=== PATIENT | male | born 1980 | race Asian ===

== ENCOUNTER 2017-09-02 20:56 | Emergency (ER) | payer MEDICAID ==
[~2017-09-02] VITALS: Ht 190.5 cm; Wt 191.0 kg
[~2017-09-02 20:56] MED LIST: NOCURR
[2017-09-02 22:04] LABS: BASOPHILS # (AUTO) 0.06 K/uL (0.00-0.20); BASOPHILS % (AUTO) 0.6 % (0.0-2.0); EOSINOPHILS # (AUTO) 0.29 K/uL (0.00-0.70); EOSINOPHILS % (AUTO) 2.85 % (1.0-6.0); HEMATOCRIT 42.7 % (41-53); HEMOGLOBIN 13.8 g/dL (13.5-17.5); LYMPHOCYTES # (AUTO) 1.8 K/uL (1.0-4.8); LYMPHOCYTES % (AUTO) 17.8 % (22.0-44.0); MEAN CORPUSCULAR HEMOGLOBIN 26.4 pg (26.0-34.0); MEAN CORPUSCULAR HGB CONC 32.3 G/dL (31.0-37.0); MEAN CORPUSCULAR VOLUME 82 fL (80-100); MONOCYTES # (AUTO) 1.2 K/uL (0.1-1.0); MONOCYTES % (AUTO) 11.7 % (2.0-9.0); NEUTROPHILS # (AUTO) 6.8 K/uL (1.8-7.7); NEUTROPHILS % (AUTO) 67.1 % (40.0-70.0); PLATELET COUNT (AUTO) 388 K/uL (150-450); RED BLOOD CELL COUNT(AUTO) 5.23 MIL/uL (4.50-5.90); RED CELL DISTRIBUTION WIDTH 14.8 % (11.5-14.5); WHITE BLOOD COUNT (AUTO) 10.1 K/uL (4.5-11.0)
[2017-09-02 22:25] LABS: ANION GAP 7 mmol/L (8-16); CALCIUM, TOTAL 9.4 mg/dL (8.8-10.5); CARBON DIOXIDE 29 mmol/L (22-29); CHLORIDE 102 mmol/L (98-107); CREATININE 1.23 mg/dL (0.60-1.30); GLOMERULAR FILTR. RATE CALC > 60 mL/min (>60); POTASSIUM 3.9 mmol/L (3.5-5.1); SODIUM SERUM 138 mmol/L (136-145); UREA NITROGEN, BLOOD 20 mg/dL (7-18)
[2017-09-02 22:29] LABS: B-TYPE NATRIURETIC PEPTIDE < 5 pg/mL (0-100)
[2017-09-02 22:50] LABS: ALANINE AMINOTRANSFERASE 39 U/L (12-78); ALBUMIN 3.6 g/dL (3.4-5.0); ASPARTATE AMINOTRANSFERASE 28 U/L (15-37); BILIRUBIN,TOTAL 0.3 mg/dL (0.1-1.0); CREATINE KINASE MB 1.7 ng/mL (0-5); CREATINE KINASE, TOTAL 424 U/L (39-308); TOTAL PROTEIN, SERUM 8.7 g/dL (6.4-8.2)
[2017-09-02 23:48] VITALS: BP 146/87
== END 2017-09-02 23:58 | disposition home or self-care (01) ==
LOC: EMS 20:56
DX: R07.89 Other chest pain (principal); J45.909 Unspecified asthma, uncomplicated; E66.9 Obesity, unspecified; F12.90 Cannabis use, unspecified, uncomplicated; Z68.43 Body mass index [BMI] 50.0-59.9, adult
CPT/HCPCS: 93005; 99285

== ENCOUNTER 2017-12-26 10:35 | Emergency (ER) | payer SELFPAY ==
[~2017-12-26] VITALS: Ht 190.5 cm; Wt 209.1 kg
[2017-12-26 12:01] LABS: BASOPHILS % (AUTO) 0.5 % (0.0-2.0); EOSINOPHILS % (AUTO) 1.8 % (1.0-6.0); HEMATOCRIT 41.1 % (41-53); HEMOGLOBIN 13.8 g/dL (13.5-17.5); LYMPHOCYTES # (AUTO) 1.3 K/uL (1.0-4.8); LYMPHOCYTES % (AUTO) 12.2 % (22.0-44.0); MEAN CORPUSCULAR HEMOGLOBIN 26.3 pg (26.0-34.0); MEAN CORPUSCULAR HGB CONC 33.5 G/dL (31.0-37.0); MEAN CORPUSCULAR VOLUME 78 fL (80-100); MONOCYTES # (AUTO) 1.8 K/uL (0.1-1.0); MONOCYTES % (AUTO) 17.9 % (2.0-9.0); NEUTROPHILS % (AUTO) 67.6 % (40.0-70.0); PLATELET COUNT (AUTO) 324 K/uL (150-450); RED BLOOD CELL COUNT(AUTO) 5.25 MIL/uL (4.50-5.90); RED CELL DISTRIBUTION WIDTH 14.7 % (11.5-14.5)
[2017-12-26 12:09] VITALS: BP 147/94
[2017-12-26 12:14] LABS: ANION GAP 9 mmol/L (8-16); CALCIUM, TOTAL 8.8 mg/dL (8.8-10.5); CARBON DIOXIDE 27 mmol/L (22-29); CHLORIDE 100 mmol/L (98-107); CREATININE 0.93 mg/dL (0.60-1.30); GLOMERULAR FILTR. RATE CALC > 60 mL/min (>60); GLUCOSE,RANDOM 103 mg/dL (70-110); POTASSIUM 4.1 mmol/L (3.5-5.1); SODIUM SERUM 136 mmol/L (136-145); UREA NITROGEN, BLOOD 13 mg/dL (7-18)
[2017-12-26 12:18] LABS: ALANINE AMINOTRANSFERASE 31 U/L (12-78); ALKALINE PHOSPHATASE 95 U/L (46-116); ASPARTATE AMINOTRANSFERASE 24 U/L (15-37); BILIRUBIN,TOTAL 0.3 mg/dL (0.1-1.0); LIPASE 72 U/L (73-393)
[2017-12-26] MEDS ORDERED: CIPROFLOXACIN HCL 250 MG TABLET PO ONE (12:45)
[2017-12-26] MEDS ORDERED: MetroNIDAZOLE 250 MG TABLET PO ONE (12:45)
== END 2017-12-26 12:54 | disposition home or self-care (01) ==
LOC: EMS 10:37
DX: R19.7 Diarrhea, unspecified (principal); J45.909 Unspecified asthma, uncomplicated; F12.90 Cannabis use, unspecified, uncomplicated
CPT/HCPCS: 99284

== ENCOUNTER 2019-10-19 03:00 | Emergency (ER) | payer SELFPAY | END 2019-10-19 03:15 | disposition left against medical advice (07) | LOC: EMS 03:05 | DX: J02.9 Acute pharyngitis, unspecified (principal); Z53.21 Procedure and treatment not carried out due to patient leaving prior to being seen by health care provider ==

== ENCOUNTER 2023-03-27 21:43 | Emergency (ER) | payer OTHER ==
[~2023-03-27] VITALS: Ht 190.5 cm; Wt 236.4 kg
[2023-03-27 22:13] VITALS: BP 117/74
[2023-03-27 22:38] LABS: APPEARANCE,URINE HAZY (CLEAR); BILIRUBIN,URINE NEGATIVE (NEGATIVE); GLUCOSE, URINE (UA) NEGATIVE (NEGATIVE); KETONES,URINE NEGATIVE (NEGATIVE); LEUKOCYTE ESTERASE ,URINE LARGE (NEGATIVE); NITRATE,URINE NEGATIVE (NEGATIVE); OCCULT BLOOD,URINE LARGE (NEGATIVE); PROTEIN,URINE 30-70 mg/dL (NEGATIVE); SPECIFIC GRAVITIY, URINE 1.027 (1.003-1.030); UROBILINOGEN,URINE <=1.0 mg/dL (<=1.0)
[2023-03-27 22:46] LABS: RBC,URINE >100 /HPF (0-2); WBC,URINE 51-100 /HPF (0-5)
[2023-03-27 22:48] LABS: BACTERIA,URINE Moderate /HPF (None Seen)
[2023-03-27] MEDS ORDERED: PHEN-674 PO (23:33)
[2023-03-27] MEDS ORDERED: CEPH-558 PO (23:33)
[2023-03-27] MEDS ORDERED: LEVOFLOXACIN 500 MG TABLET PO ONE (23:45)
[2023-03-27] MEDS ORDERED: CEPHALEXIN MONOHYDRATE 500 MG CAPSULE PO ONE (23:45)
[2023-03-27] MEDS ORDERED: PHENAZOPYRIDINE HCL 100 MG TABLET PO ONE (23:45)
[2023-03-28] MEDS ORDERED: PHEN-674 PO
[2023-03-28] MEDS ORDERED: CEPH-558 PO
== END 2023-03-28 00:12 | disposition home or self-care (01) ==
LOC: EMS 21:43
DX: N39.0 Urinary tract infection, site not specified (principal); J45.909 Unspecified asthma, uncomplicated; I10 Essential (primary) hypertension; F12.90 Cannabis use, unspecified, uncomplicated; Z98.890 Other specified postprocedural states
CPT/HCPCS: 81001; 87086; 87186; 99284; Z7502; Z7610

== ENCOUNTER 2023-04-14 16:53 | Emergency (ER) | payer OTHER ==
[~2023-04-14] VITALS: Ht 190.5 cm; Wt 190.9 kg
[~2023-04-14 16:53] MED LIST changes: +CEPH-558 PO; +PHEN-674 PO
[2023-04-14] MEDS ORDERED: ASPI-1450 PO (17:00)
[2023-04-14] MEDS ORDERED: OMEP10 PO (17:00)
[2023-04-14] MEDS ORDERED: LISI-892 PO (17:00)
[2023-04-14] MEDS ORDERED: LORA10TA7 PO (17:00)
[2023-04-14] MEDS ORDERED: METO25XL PO (17:00)
[2023-04-14 18:08] LABS: APPEARANCE,URINE HAZY (CLEAR); BILIRUBIN,URINE NEGATIVE (NEGATIVE); GLUCOSE, URINE (UA) NEGATIVE (NEGATIVE); KETONES,URINE NEGATIVE (NEGATIVE); LEUKOCYTE ESTERASE ,URINE LARGE (NEGATIVE); NITRATE,URINE NEGATIVE (NEGATIVE); OCCULT BLOOD,URINE LARGE (NEGATIVE); PH,URINE 5.5 (5.0-8.0); PROTEIN,URINE TRACE mg/dL (NEGATIVE); SPECIFIC GRAVITIY, URINE 1.021 (1.003-1.030); UROBILINOGEN,URINE <=1.0 mg/dL (<=1.0)
[2023-04-14 18:12] LABS: BACTERIA,URINE Moderate /HPF (None Seen); RBC,URINE 26-50 /HPF (0-2); SQUAMOUS EPITHELIAL CELL,UR Rare /LPF (None Seen); WBC,URINE 51-100 /HPF (0-5)
[2023-04-14] MEDS ORDERED: SULFAMETHOX/TRIMETH DS 800-160 MG/TABLET PO ONE (19:00)
[2023-04-14] MEDS ORDERED: PredniSONE 20 MG TABLET PO ONE (19:00)
[2023-04-14] MEDS ORDERED: COLCHICINE 0.6 MG TABLET PO ONE (19:00)
[2023-04-14] MEDS ORDERED: LEVO25TA9 PO (19:02)
[2023-04-14] MEDS ORDERED: METF-1211 PO (19:02)
[2023-04-14] MEDS ORDERED: IBUP-2077 PO (19:02)
[2023-04-14] MEDS ORDERED: ASPI-1522 PO (19:02)
[2023-04-14] MEDS ORDERED: LISI-658 PO (19:02)
[2023-04-14] MEDS ORDERED: ALBU18HF12 PO (19:02)
[2023-04-14] MEDS ORDERED: OMEP20CA13 PO (19:02)
[2023-04-14] MEDS ORDERED: GABA-529 PO (19:02)
[2023-04-14] MEDS ORDERED: COLC0.6T73 PO (19:41)
[2023-04-14] MEDS ORDERED: CIPR500T10 PO (19:41)
[2023-04-14 21:09] VITALS: BP 148/89; PULSE 88; RESP 17; TEMP 100.1
[2023-04-14] MEDS ORDERED: ACETAMINOPHEN 325 MG TABLET PO ONE (21:15)
[2023-04-14] MEDS: COLCHICINE 0.6 MG TABLET PO ONE ×2 (21:27→21:33)
== END 2023-04-14 21:41 | disposition home or self-care (01) ==
LOC: EMS 16:55
DX: N39.0 Urinary tract infection, site not specified (principal); M10.9 Gout, unspecified; M79.674 Pain in right toe(s); J45.909 Unspecified asthma, uncomplicated; I10 Essential (primary) hypertension; E66.9 Obesity, unspecified; F12.90 Cannabis use, unspecified, uncomplicated; Z98.890 Other specified postprocedural states
CPT/HCPCS: 99284; 81001; 87086; 87186; 73630; J7512

== ENCOUNTER 2023-06-26 18:41 | Emergency (ER) | payer OTHER ==
[~2023-06-26] VITALS: Ht 190.5 cm; Wt 236.4 kg
[~2023-06-26 18:41] MED LIST changes: +ALBU18HF12 PO; +ASPI-1522 PO; -CEPH-558 PO; +CIPR500T10 PO; +GABA-529 PO; +IBUP-2077 PO; +LEVO25TA9 PO; +LISI-658 PO; +LORA10TA7 PO; +METF-1211 PO; +METO25XL PO; -NOCURR; +OMEP20CA13 PO; -PHEN-674 PO
[2023-06-26 18:42] VITALS: TEMP 100.2
[2023-06-26 19:51] LABS: APPEARANCE,URINE HAZY (CLEAR); BILIRUBIN,URINE NEGATIVE (NEGATIVE); COLOR,URINE YELLOW (YELLOW); GLUCOSE, URINE (UA) NEGATIVE (NEGATIVE); KETONES,URINE NEGATIVE (NEGATIVE); LEUKOCYTE ESTERASE ,URINE LARGE (NEGATIVE); NITRATE,URINE POSITIVE (NEGATIVE); OCCULT BLOOD,URINE MODERATE (NEGATIVE); PROTEIN,URINE 30-70 mg/dL (NEGATIVE); SPECIFIC GRAVITIY, URINE 1.025 (1.003-1.030); UROBILINOGEN,URINE <=1.0 mg/dL (<=1.0)
[2023-06-26 19:58] LABS: WBC,URINE >100 /HPF (0-5)
[2023-06-26 19:59] LABS: BACTERIA,URINE Many /HPF (None Seen)
[2023-06-26 20:53] VITALS: BP 141/63; PULSE 96; RESP 18
[2023-06-26] MEDS ORDERED: CIPR500T10 PO (22:16)
[2023-06-26] MEDS ORDERED: ACETAMINOPHEN 500 MG TABLET PO ONE (22:30)
[2023-06-26] MEDS ORDERED: CEPHALEXIN MONOHYDRATE 500 MG CAPSULE PO ONE (22:30)
[2023-06-26] MEDS ORDERED: CIPROFLOXACIN HCL 250 MG TABLET PO ONE (22:30)
== END 2023-06-26 23:03 | disposition home or self-care (01) ==
LOC: EMS 18:42
DX: N39.0 Urinary tract infection, site not specified (principal); J45.909 Unspecified asthma, uncomplicated; I10 Essential (primary) hypertension; F12.90 Cannabis use, unspecified, uncomplicated; Z98.890 Other specified postprocedural states
CPT/HCPCS: 81001; 82962; 87086; 87186; 99284